=== PATIENT | female | born 1990 | race Caucasian/White ===

== ENCOUNTER 2021-03-09 01:27 | Emergency (ER) | payer MEDICAID ==
[~2021-03-09] VITALS: Ht 160 cm; Wt 54.4 kg
[2021-03-09 03:00] VITALS: BP 122/86
== END 2021-03-09 03:32 | disposition home or self-care (01) ==
LOC: ER 01:27
DX: S83.92XA Sprain of unspecified site of left knee, initial encounter (principal); W18.39XA Other fall on same level, initial encounter; Y93.89 Activity, other specified; Y92.89 Other specified places as the place of occurrence of the external cause; Y99.8 Other external cause status
CPT/HCPCS: 29505; 73562

== ENCOUNTER 2022-01-28 16:11 | Emergency (ER) | payer SELFPAY ==
[~2022-01-28] VITALS: Ht 160 cm; Wt 53.3 kg
[2022-01-28] MEDS ORDERED: SODIUM CHLORIDE 0.9% 500 ML IV ONE (16:45)
[2022-01-28 19:20] VITALS: BP 119/83
[2022-01-28] MEDS ORDERED: TRAM-297 PO (19:27)
== END 2022-01-28 20:49 | disposition home or self-care (01) ==
LOC: EDBD 16:11 → ER 16:11
DX: S50.01XA Contusion of right elbow, initial encounter (principal); S80.02XA Contusion of left knee, initial encounter; F17.210 Nicotine dependence, cigarettes, uncomplicated; X58.XXXA Exposure to other specified factors, initial encounter; Y93.89 Activity, other specified; Y92.89 Other specified places as the place of occurrence of the external cause; Y99.8 Other external cause status
CPT/HCPCS: 29505; 73080; 73200; 73562; 96360; 99284; J7040

== ENCOUNTER 2023-04-08 10:58 | Emergency (ER) | payer MEDICAID, OTHER ==
[~2023-04-08] VITALS: Ht 160 cm; Wt 54.5 kg
[~2023-04-08 10:58] MED LIST: TRAM-297 PO
[2023-04-08 11:56] VITALS: BP 124/91; PULSE 101; RESP 18; TEMP 97.9; O2SAT 100
[2023-04-08] MEDS ORDERED: IBUP-1454 PO (13:30)
[2023-04-08] MEDS ORDERED: BACL10TA PO (13:30)
== END 2023-04-08 13:33 | disposition home or self-care (01) ==
LOC: ER 10:58
DX: S16.1XXA Strain of muscle, fascia and tendon at neck level, initial encounter (principal); S46.911A Strain of unspecified muscle, fascia and tendon at shoulder and upper arm level, right arm, initial encounter; F17.210 Nicotine dependence, cigarettes, uncomplicated; V49.9XXA Car occupant (driver) (passenger) injured in unspecified traffic accident, initial encounter; Y93.89 Activity, other specified; Y92.488 Other paved roadways as the place of occurrence of the external cause; Y99.8 Other external cause status
CPT/HCPCS: 72040; 73030

== ENCOUNTER 2023-07-17 11:24 | Emergency (ER) | payer OTHER ==
[~2023-07-17] VITALS: Ht 162.6 cm; Wt 55.6 kg
[~2023-07-17 11:24] MED LIST changes: +BACL10TA PO; +IBUP-1454 PO
[2023-07-17 11:49] VITALS: BP 125/79; PULSE 107; RESP 18; TEMP 97.7; O2SAT 96
[2023-07-17] MEDS ORDERED: DexAMETHasone SOD PHOS 10MG/1ML VIAL INJ IM ONE (12:30)
[2023-07-17] MEDS ORDERED: diphenhdrAMINE HCL 50 MG/1 ML VL IM ONE (12:30)
== END 2023-07-17 13:02 | disposition home or self-care (01) ==
LOC: ER 11:24
DX: L23.9 Allergic contact dermatitis, unspecified cause (principal); F17.210 Nicotine dependence, cigarettes, uncomplicated
CPT/HCPCS: 96372; 99284; J1100; J1200